=== PATIENT | male | born 1995 | race Caucasian/White ===

== ENCOUNTER → 2022-10-18 | Emergency (ER) | payer SELFPAY ==
[~2022-10-18] VITALS: Ht 167.6 cm; Wt 78.0 kg
[2022-10-18 11:40] LABS: BASOPHILS % 0.4 % (0.0-2.0); EOSINOPHILS % 2.8 % (0.0-5.0); HEMATOCRIT. 41.3 % (42.0-52.0); HEMOGLOBIN. 14.1 g/dL (14.0-18.0); LYMPHOCYTES % 21.7 % (20.0-50.0); MEAN CORPUSCULAR HEMOGLOBIN 29.5 pg (28.0-32.0); MEAN CORPUSCULAR VOLUME 86.3 fL (80.0-94.0); MEAN PLATELET VOLUME 7.1 fl (7.4-10.4); MONOCYTES % 5.4 % (2.0-8.0); NEUTROPHILS % 69.7 % (40.0-76.0); PLATELET 292 x1000/uL (130-400); RED BLOOD CELL COUNT 4.79 mill/uL (4.7-6.1); RED CELL DISTRIBUTION WIDTH 12.9 % (11.6-14.6)
[2022-10-18 11:50] LABS: CHLORIDE 107 mEq/L (98-107)
[2022-10-18 11:56] LABS: ETHANOL BLOOD < 10 mg/dL
[2022-10-18 13:01] VITALS: BP 112/74
== END | disposition home or self-care (01) ==
LOC: ER 10:56
DX: R56.9 Unspecified convulsions (principal); M79.641 Pain in right hand; M25.561 Pain in right knee
CPT/HCPCS: 36415; 73120; 73560; 80053; 80320; 85025; 99285; G0480